=== PATIENT | male | born 1950 | race Caucasian/White ===

== ENCOUNTER 2020-08-05 13:05 | Inpatient (IN) | payer OTHER ==
[~2020-08-05] VITALS: Ht 162.6 cm; Wt 68.5 kg
[~2020-08-05 13:05] MED LIST: ASCO500 PO; ATOR10; ATOR10 PO; Aspir 8181 MG PO; CENTRUM SILVER1 EAC2 PO; CLOP75 PO; DOCU100 PO; FISH OIL 1,0001 EAC1 PO; FISH1000 PO; FOLI400 PO; MULVITMINF; OLME20 PO; OMEP10ER; PENT400ER; ROSU10TA; SILD50TA PO; VALS80 PO; Vitamin B-121000 MCG PO; [UNRECOGNIZED DRUG - REMARK]; [UNRECOGNIZED DRUG - REMARK]
[2020-08-05 13:37] LABS: Hematocrit 18.8 % (37.0-53.0); Mean Corpuscular HGB 37.7 pg (26.0-34.0); Mean Corpuscular HGB Conc 29.3 g/dL (31.5-36.5); Mean Corpuscular Volume 129 fL (80-100); NRBC ABSOLUTE 0.65 K/mm3 (0.00-0.02); NRBC Auto 2.6 /100 WBC (0.0-0.2); RDW Coefficient Variation 19.9 % (11.7-14.2); RDW Standard Deviation 91.1 fL (35.1-46.3); Red Blood Cell Count 1.46 M/mm3 (4.30-5.90); White Blood Cell Count 25.42 K/mm3 (4.00-11.30)
[2020-08-05 13:42] LABS: Mean Platelet Volume 14.4 fL (9.1-12.4)
[2020-08-05 13:44] LABS: Hemoglobin 5.5 g/dL (13.5-17.5)
[2020-08-05 13:45] LABS: Platelet Count 41 K/mm3 (150-400)
[2020-08-05 13:58] LABS: Alanine Aminotransfer (ALT/SGP 16 U/L (12-78); Albumin, Blood 3.4 g/dL (3.4-5.0); Albumin/Globulin Ratio 1.2 (0.8-1.8); Alk Phos 119 U/L (50-136); Anion Gap 8 mmol/L (6-16); Aspartate Aminotrans (AST/SGOT 11 U/L (12-37); Bilirubin, Total 0.9 mg/dL (0.1-1.0); Blood Urea Nitrogen 14 mg/dL (8-24); CO2, Blood 23 mmol/L (21-32); Calcium, Blood 8.6 mg/dL (8.5-10.1); Chloride, Blood 107 mmol/L (98-108); Creatinine, Blood 0.52 mg/dL (0.60-1.20); Globulin, Blood 2.8 g/dL (2.2-4.0); Glomerular Filtration Rate >60 (60-); Glucose, Blood 96 mg/dL (70-99); Potassium, Blood 4.1 mmol/L (3.5-5.5); Sodium, Blood 138 mmol/L (136-145); Total Protein, Blood 6.2 g/dL (6.4-8.2); Troponin I 0.083 ng/mL (0.000-0.040)
[2020-08-05 14:17] LABS: BAND PERCENT MAN 3 % (0-8); BASOPHILS PERCENT MAN 0 % (0-2); BLASTS PERCENT MAN 4 % (0-0); EOSINOPHILS PERCENT MAN 0 % (0-6); LYMPHOCYTES % ATYPICAL MANUAL 8 % (0-0); LYMPHOCYTES ABSOLUTE MAN 13.47 K/mm3 (0.84-5.20); LYMPHOCYTES PERCENT MAN 45 % (21-46); METAMYELOCYTE ABSOLUTE MAN 0.25 K/mm3 (0.00-0.00); METAMYELOCYTE PERCENT MAN 1 % (0-0); MONOCYTES ABSOLUTE MAN 5.08 K/mm3 (0.16-1.47); MONOCYTES PERCENT MAN 20 % (4-13); MYELOCYTE ABSOLUTE MAN 0.25 K/mm3 (0.00-0.00); MYELOCYTE PERCENT MAN 1 % (0-0); NEUTROPHILS ABSOLUTE MAN 5.33 K/mm3 (1.96-9.15); SEG NEUTROPHILS PERCENT MAN 18 % (41-73); TOTAL CELLS COUNTED 100
[2020-08-05] MEDS ORDERED: Hydroxyurea500 MG PO ×2 (14:17)
[2020-08-05] MEDS ORDERED: VALS80 PO ×2 (14:23)
[2020-08-05] MEDS ORDERED: FISH OIL-VIT D1 EACH PO ×2 (14:24)
[2020-08-05] MEDS ORDERED: ATOR40TA PO ×2 (14:24)
[2020-08-05] MEDS ORDERED: C COMPLEX1000 M1 PO ×2 (16:56)
--- NOTE | 2020-08-05 18:14 | NUR ---
SHIFT SUMMARY PATIENT TO THE FLOOR LATE THIS AFTERNOON. PATIENT ALERT, ORIENTED, AND INDEPENDENT IN THE ROOM UPON ARRIVAL. PATIENT TRANSFERED TO THE BED INDEPENDENTLY. PATIENT UP 1X TO THE BATHROOM. PATIENT FINISHED 1ST UNIT OF PRBCs PRIOR TO ARRIVING TO THE FLOOR. SECOND UNIT OF PRBCs INFUSING. PATIENT CURRENTLY SITTING UP IN BED EATING DINNER.
[2020-08-05 21:37] LABS: Hemoglobin 7.5 g/dL (13.5-17.5)
[2020-08-06 05:01] LABS: Hemoglobin 6.9 g/dL (13.5-17.5); NRBC ABSOLUTE 0.41 K/mm3 (0.00-0.02); NRBC Auto 2.8 /100 WBC (0.0-0.2)
[2020-08-06 05:03] LABS: Hematocrit 21.9 % (37.0-53.0); Mean Corpuscular HGB 35.9 pg (26.0-34.0); Mean Corpuscular HGB Conc 31.5 g/dL (31.5-36.5); Mean Corpuscular Volume 114 fL (80-100); Red Blood Cell Count 1.92 M/mm3 (4.30-5.90)
[2020-08-06 05:04] LABS: Platelet Count 33 K/mm3 (150-400)
[2020-08-06 05:22] LABS: BAND PERCENT MAN 2 % (0-8); BASOPHILS ABSOLUTE MAN 0.29 K/mm3 (0.00-0.23); BASOPHILS PERCENT MAN 2 % (0-2); BLASTS PERCENT MAN 3 % (0-0); EOSINOPHILS ABSOLUTE MAN 0.14 K/mm3 (0.00-0.68); EOSINOPHILS PERCENT MAN 1 % (0-6); LYMPHOCYTES % ATYPICAL MANUAL 1 % (0-0); LYMPHOCYTES ABSOLUTE MAN 4.38 K/mm3 (0.84-5.20); LYMPHOCYTES PERCENT MAN 29 % (21-46); METAMYELOCYTE ABSOLUTE MAN 0.29 K/mm3 (0.00-0.00); METAMYELOCYTE PERCENT MAN 2 % (0-0); MONOCYTES ABSOLUTE MAN 5.69 K/mm3 (0.16-1.47); MONOCYTES PERCENT MAN 39 % (4-13); MYELOCYTE ABSOLUTE MAN 0.58 K/mm3 (0.00-0.00); MYELOCYTE PERCENT MAN 4 % (0-0); NEUTROPHILS ABSOLUTE MAN 2.77 K/mm3 (1.96-9.15); SEG NEUTROPHILS PERCENT MAN 17 % (41-73); TOTAL CELLS COUNTED 100
[2020-08-06 05:32] LABS: Anion Gap 5 mmol/L (6-16); Blood Urea Nitrogen 10 mg/dL (8-24); Bun/Creatinine Ratio 18.5 (12.0-20.0); CO2, Blood 24 mmol/L (21-32); Calcium, Blood 8.1 mg/dL (8.5-10.1); Chloride, Blood 112 mmol/L (98-108); Creatinine, Blood 0.54 mg/dL (0.60-1.20); Glomerular Filtration Rate >60 (60-); Glucose, Blood 96 mg/dL (70-99); Potassium, Blood 3.8 mmol/L (3.5-5.5); Sodium, Blood 141 mmol/L (136-145)
--- NOTE | 2020-08-06 06:45 | NUR ---
SHIFT SUMMARY PATIENT ALERT AND ORIENTED. HAD NO COMPLAINTS OF PAIN OR SHORTNESS OF BREATH. NO ACUTE ISSUES NOTED OVERNIGHT. IV PATENT AND FLUSHED. BED IN LOWEST POSITION WITH WHEELS LOCKED. CALL LIGHT WITHIN REACH. REPORT GIVEN TO ONCOMING RN.
--- NOTE | 2020-08-06 07:59 | NUR ---
AWARE OF LABS AND WILL ORDER BLOOD TRANSFUSION
--- NOTE | 2020-08-06 12:32 | NUR ---
VERIFIED HYDROXYUREA WITH [facility]. PATIENT TAKES 1000MG DAILY. PER DR.HACK MEJIA TO CHANGE AND GIVE 500MG MORE.
[2020-08-06 14:03] LABS: Hematocrit 25.3 % (37.0-53.0); Hemoglobin 8.1 g/dL (13.5-17.5)
--- NOTE | 2020-08-06 17:45 | NUR ---
ALERT. ORIENTED. ON 3 LPM WITH BASELINE NO OXYGEN. HOME 0XYGEN EVAL DONE AND DOES NEED OXYGEN AT HOME. [facility] NOT AVAILABLE TO DO HOME OXYGEN OVER THE WEEKEND. PATIENT DOES NOT WISH TO PAY FOR OTHER COMPANY TO SET HIM UP WITH OXYGEN. NO OTHER C/O. WCTM
--- NOTE | 2020-08-07 06:37 | NUR ---
SHIFT SUMMARY PATIENT ALERT AND ORIENTED. HAD NO COMPLAINTS OF PAIN OR SHORTNESS OF BREATH. PATIENT REMAINS ON 3 LITERS OF OXYGEN VIA NASAL CANULA. NO ACUTE ISSUES NOTED. IV PATENT AND FLUSHED. BED IN LOWEST POSITION WITH WHEELS LOCKED. CALL LIGHT WITHIN REACH. REPORT GIVEN TO ONCOMING RN.
[2020-08-07 07:51] LABS: Hematocrit 26.6 % (37.0-53.0); Hemoglobin 8.2 g/dL (13.5-17.5)
[2020-08-07] MEDS ORDERED: TIOT18 INH ×2 (11:08)
--- NOTE | 2020-08-07 12:17 | NUR ---
REVIEW D'C WITH PATIENT AND S.O. AWARE HAS ONE MED AT [facility] [employer] [facility]. REVIEW WHY TAKE IT. AWARE NEEDS TO MAKE APPT WITH VYadielA. PCP AND TO KEEP APPT WITH .ALBA SHOWED PATIENT HOW TO USE OXYGEN. PATIENT/S.O. AWARE THEY NEED TO CALL [facility] WHEN THEY GET HOME TO SET UP FURTHER EQUIPMENT. [facility] CARD ON OXYGEN CASE. ANSWER ALL QUESTIONS. IV D'C W/NO SWELLING OR BRUISING TO AREA. PATIENT VERBALIZES UNDERSTANDING OF D'C. IN W/C W/RN TO POV.
== END 2020-08-07 12:10 | disposition home or self-care (01) | DRG 840 ==
LOC: ER 13:05 → ERHOLD 15:23 → MEDS 16:35
PROVIDERS: Emergency Medicine; Internal Medicine; ADMIT Internal Medicine
PROC: 30233N1 Transfusion of Nonautologous Red Blood Cells into Peripheral Vein, Percutaneous Approach (ICD-10-PCS; principal; 2020-08-05)
DX: C92.10 Chronic myeloid leukemia, BCR/ABL-positive, not having achieved remission (principal); J96.01 Acute respiratory failure with hypoxia; I10 Essential (primary) hypertension; E78.5 Hyperlipidemia, unspecified; F17.210 Nicotine dependence, cigarettes, uncomplicated; J44.9 Chronic obstructive pulmonary disease, unspecified; D63.0 Anemia in neoplastic disease; Z90.89 Acquired absence of other organs; Z98.52 Vasectomy status; Z86.010 Personal history of colon polyps; Z88.5 Allergy status to narcotic agent; Z88.8 Allergy status to other drugs, medicaments and biological substances; Z79.02 Long term (current) use of antithrombotics/antiplatelets; Z79.82 Long term (current) use of aspirin; Z79.899 Other long term (current) drug therapy
CPT/HCPCS: 36415; 36430; 71045; 80048; 80053; 83880; 84145; 84484; 85014; 85018; 85025; 86850; 86900; 86901; 86923; 93005; 93010; 94760; 94761; 99285-25; A9270; J7030; J7050; P9016

== ENCOUNTER 2020-08-18 01:19 | Day surgery (SDC) | payer OTHER, BC ==
[2020-08-16 12:30] LABS: Hematocrit 24.2 % (37.0-53.0); Hemoglobin 7.2 g/dL (13.5-17.5); Mean Corpuscular HGB 35.8 pg (26.0-34.0); Mean Corpuscular HGB Conc 29.8 g/dL (31.5-36.5); Mean Corpuscular Volume 120 fL (80-100); NRBC ABSOLUTE 0.73 K/mm3 (0.00-0.02); NRBC Auto 1.6 /100 WBC (0.0-0.2); RDW Coefficient Variation 22.3 % (11.7-14.2); RDW Standard Deviation 97.4 fL (35.1-46.3); Red Blood Cell Count 2.01 M/mm3 (4.30-5.90); White Blood Cell Count 46.74 K/mm3 (4.00-11.30)
[2020-08-16 12:52] LABS: Platelet Count 40 K/mm3 (150-400)
[2020-08-16 13:12] LABS: BAND PERCENT MAN 4 % (0-8); BASOPHILS ABSOLUTE MAN 0.93 K/mm3 (0.00-0.23); BASOPHILS PERCENT MAN 2 % (0-2); EOSINOPHILS PERCENT MAN 0 % (0-6); LYMPHOCYTES ABSOLUTE MAN 3.73 K/mm3 (0.84-5.20); LYMPHOCYTES PERCENT MAN 8 % (21-46); METAMYELOCYTE ABSOLUTE MAN 2.33 K/mm3 (0.00-0.00); METAMYELOCYTE PERCENT MAN 5 % (0-0); MONOCYTES ABSOLUTE MAN 23.83 K/mm3 (0.16-1.47); MONOCYTES PERCENT MAN 51 % (4-13); NEUTROPHILS ABSOLUTE MAN 10.75 K/mm3 (1.96-9.15); SEG NEUTROPHILS PERCENT MAN 19 % (41-73); TOTAL CELLS COUNTED 100
[2020-08-16 13:13] LABS: MYELOCYTE ABSOLUTE MAN 2.33 K/mm3 (0.00-0.00); OTHER CELL PERCENT MAN 5 % (0-0); PROMYELOCYTE ABSOLUTE MAN 0.46 K/mm3 (0.00-0.00); PROMYELOCYTE PERCENT MAN 1 % (0-0)
[2020-08-16 13:15] LABS: MYELOCYTE PERCENT MAN 5 % (0-0)
[~2020-08-18 01:19] MED LIST changes: +ATOR40TA PO; +C COMPLEX1000 M1 PO; +FISH OIL-VIT D1 EACH PO; +Hydroxyurea500 MG PO; +TIOT18 INH
[2020-08-18] MEDS ORDERED: OLME20 PO (14:50)
[2020-08-18] MEDS ORDERED: MYLANTA GAS MIN42 MG PO (14:50)
[2020-08-18] MEDS ORDERED: MIRALAX17 GM PO (14:50)
== END 2020-08-18 15:46 | disposition home or self-care (01) ==
LOC: ATC 01:19 → EDSTATUS 13:30 → ATC 15:46
PROVIDERS: Internal Medicine Hematology & Oncology
DX: C92.02 Acute myeloblastic leukemia, in relapse (principal); F17.210 Nicotine dependence, cigarettes, uncomplicated; Z88.6 Allergy status to analgesic agent; Z88.5 Allergy status to narcotic agent; Z79.899 Other long term (current) drug therapy
CPT/HCPCS: 36415; 36430; 85025; 86850; 86900; 86901; 86923; J1642; J7050; P9016

== ENCOUNTER 2020-08-24 10:41 | Day surgery (SDC) | payer OTHER, BC ==
[2020-08-23 12:34] LABS: Hematocrit 22.8 % (37.0-53.0); Hemoglobin 6.7 g/dL (13.5-17.5); Mean Corpuscular HGB 35.6 pg (26.0-34.0); Mean Corpuscular HGB Conc 29.4 g/dL (31.5-36.5); Mean Corpuscular Volume 121 fL (80-100); NRBC ABSOLUTE 1.54 K/mm3 (0.00-0.02); NRBC Auto 2.7 /100 WBC (0.0-0.2); RDW Coefficient Variation 22.7 % (11.7-14.2); RDW Standard Deviation 98.3 fL (35.1-46.3); Red Blood Cell Count 1.88 M/mm3 (4.30-5.90)
[2020-08-23 13:02] LABS: White Blood Cell Count 57.92 K/mm3 (4.00-11.30)
[2020-08-23 13:03] LABS: Platelet Count 41 K/mm3 (150-400)
[2020-08-23 13:47] LABS: BAND PERCENT MAN 4 % (0-8); BASOPHILS ABSOLUTE MAN 0.57 K/mm3 (0.00-0.23); BASOPHILS PERCENT MAN 1 % (0-2); BLASTS PERCENT MAN 4 % (0-0); EOSINOPHILS ABSOLUTE MAN 0.57 K/mm3 (0.00-0.68); EOSINOPHILS PERCENT MAN 1 % (0-6); LYMPHOCYTES % ATYPICAL MANUAL 3 % (0-0); LYMPHOCYTES ABSOLUTE MAN 6.37 K/mm3 (0.84-5.20); LYMPHOCYTES PERCENT MAN 8 % (21-46); METAMYELOCYTE ABSOLUTE MAN 5.79 K/mm3 (0.00-0.00); METAMYELOCYTE PERCENT MAN 10 % (0-0); MONOCYTES PERCENT MAN 38 % (4-13); MYELOCYTE ABSOLUTE MAN 8.68 K/mm3 (0.00-0.00); MYELOCYTE PERCENT MAN 15 % (0-0); NEUTROPHILS ABSOLUTE MAN 8.68 K/mm3 (1.96-9.15); OTHER CELL PERCENT MAN 4 % (0-0); PROMYELOCYTE ABSOLUTE MAN 0.57 K/mm3 (0.00-0.00); PROMYELOCYTE PERCENT MAN 1 % (0-0); SEG NEUTROPHILS PERCENT MAN 11 % (41-73); TOTAL CELLS COUNTED 100
[~2020-08-24 10:41] MED LIST changes: +MIRALAX17 GM PO; +MYLANTA GAS MIN42 MG PO
== END 2020-08-24 17:21 | disposition home or self-care (01) ==
LOC: ATC 10:41
PROVIDERS: Internal Medicine Hematology & Oncology
DX: C92.02 Acute myeloblastic leukemia, in relapse (principal); C93.10 Chronic myelomonocytic leukemia not having achieved remission; D64.81 Anemia due to antineoplastic chemotherapy; F17.210 Nicotine dependence, cigarettes, uncomplicated; Z88.5 Allergy status to narcotic agent
CPT/HCPCS: 36415; 36430; 85025; 86850; 86900; 86901; 86923; J1642; J7050; P9016

== ENCOUNTER 2020-08-31 02:39 | Day surgery (SDC) | payer OTHER ==
[2020-08-30 10:21] LABS: Hematocrit 23.1 % (37.0-53.0); Hemoglobin 6.8 g/dL (13.5-17.5); Mean Corpuscular HGB 35.8 pg (26.0-34.0); Mean Corpuscular HGB Conc 29.4 g/dL (31.5-36.5); Mean Corpuscular Volume 122 fL (80-100); NRBC ABSOLUTE 3.65 K/mm3 (0.00-0.02); NRBC Auto 4.7 /100 WBC (0.0-0.2); RDW Coefficient Variation 24.9 % (11.7-14.2); RDW Standard Deviation 105.6 fL (35.1-46.3)
[2020-08-30 10:32] LABS: Platelet Count 48 K/mm3 (150-400)
[2020-08-30 10:33] LABS: White Blood Cell Count 77.78 K/mm3 (4.00-11.30)
[2020-08-30 10:48] LABS: BAND PERCENT MAN 2 % (0-8); BASOPHILS ABSOLUTE MAN 0.77 K/mm3 (0.00-0.23); BASOPHILS PERCENT MAN 1 % (0-2); EOSINOPHILS ABSOLUTE MAN 1.55 K/mm3 (0.00-0.68); EOSINOPHILS PERCENT MAN 2 % (0-6); LYMPHOCYTES ABSOLUTE MAN 14.77 K/mm3 (0.84-5.20); LYMPHOCYTES PERCENT MAN 19 % (21-46); MONOCYTES ABSOLUTE MAN 20.22 K/mm3 (0.16-1.47); MONOCYTES PERCENT MAN 26 % (4-13); NEUTROPHILS ABSOLUTE MAN 17.11 K/mm3 (1.96-9.15); SEG NEUTROPHILS PERCENT MAN 20 % (41-73); TOTAL CELLS COUNTED 100
[2020-08-30 10:49] LABS: MYELOCYTE PERCENT MAN 27 % (0-0); OTHER CELL PERCENT MAN 3 % (0-0)
== END 2020-08-31 17:30 | disposition home or self-care (01) ==
LOC: ATC 02:39 → EDSTATUS 15:00 → ATC 15:00
PROVIDERS: Internal Medicine Hematology & Oncology
DX: C92.02 Acute myeloblastic leukemia, in relapse (principal); F17.210 Nicotine dependence, cigarettes, uncomplicated; Z88.5 Allergy status to narcotic agent; Z88.6 Allergy status to analgesic agent; Z79.82 Long term (current) use of aspirin; Z79.899 Other long term (current) drug therapy
CPT/HCPCS: 36415; 36430; 85025; 86850; 86900; 86901; 86923; J1642; J7050; P9016

== ENCOUNTER 2020-09-15 10:03 | Day surgery (SDC) | payer OTHER ==
[~2020-09-15 10:03] MED LIST changes: +SPIRIVA RESPIMAT4 G3 INH; -TIOT18 INH; -Vitamin B-121000 MCG PO
[2020-09-15] MEDS ORDERED: VALS80 PO (11:40)
[2020-09-15] MEDS ORDERED: ALBU90OI INH (13:25)
[2020-09-15] MEDS ORDERED: Nicoderm Cq1 EAC1 TD (13:25)
[2020-09-15] MEDS ORDERED: CYAN500 PO (14:13)
== END 2020-09-15 23:00 | disposition home or self-care (01) ==
LOC: ATC 10:03
DX: C92.02 Acute myeloblastic leukemia, in relapse (principal); F17.210 Nicotine dependence, cigarettes, uncomplicated; Z88.5 Allergy status to narcotic agent; Z88.6 Allergy status to analgesic agent
CPT/HCPCS: 36415; 85025; 86850; 86900; 86901; 86923; J1642; J2704; J3010; J7050

== ENCOUNTER 2020-09-15 10:56 | Inpatient (IN) | payer MEDICARE, OTHER ==
[~2020-09-15] VITALS: Ht 162.6 cm; Wt 72.5 kg
[2020-09-15 11:40] LABS: Hematocrit 18.6 % (37.0-53.0); Mean Corpuscular HGB 35.9 pg (26.0-34.0); Mean Corpuscular HGB Conc 29.6 g/dL (31.5-36.5); Mean Corpuscular Volume 122 fL (80-100); NRBC ABSOLUTE 7.16 K/mm3 (0.00-0.02); NRBC Auto 6.5 /100 WBC (0.0-0.2); RDW Coefficient Variation 26.7 % (11.7-14.2); RDW Standard Deviation 110.6 fL (35.1-46.3); Red Blood Cell Count 1.53 M/mm3 (4.30-5.90)
[2020-09-15] MEDS ORDERED: VALS80 PO (11:40)
[2020-09-15 11:46] LABS: Hemoglobin 5.5 g/dL (13.5-17.5); White Blood Cell Count 110.36 K/mm3 (4.00-11.30)
[2020-09-15 11:47] LABS: Platelet Count 37 K/mm3 (150-400)
[2020-09-15 12:17] LABS: Alanine Aminotransfer (ALT/SGP 20 U/L (12-78); Albumin, Blood 2.8 g/dL (3.4-5.0); Albumin/Globulin Ratio 1.1 (0.8-1.8); Alk Phos 133 U/L (50-136); Anion Gap 7 mmol/L (6-16); Aspartate Aminotrans (AST/SGOT 28 U/L (12-37); Bilirubin, Total 1.1 mg/dL (0.1-1.0); Blood Urea Nitrogen 17 mg/dL (8-24); Bun/Creatinine Ratio 37.2 (12.0-20.0); CO2, Blood 23 mmol/L (21-32); Chloride, Blood 108 mmol/L (98-108); Creatinine, Blood 0.46 mg/dL (0.60-1.20); Globulin, Blood 2.5 g/dL (2.2-4.0); Glomerular Filtration Rate >60 (60-); Glucose, Blood 126 mg/dL (70-99); Potassium, Blood 4.3 mmol/L (3.5-5.5); Sodium, Blood 138 mmol/L (136-145); Total Protein, Blood 5.3 g/dL (6.4-8.2)
[2020-09-15 12:40] LABS: BASOPHILS PERCENT MAN 0 % (0-2); EOSINOPHILS PERCENT MAN 0 % (0-6); LYMPHOCYTES ABSOLUTE MAN 24.27 K/mm3 (0.84-5.20); LYMPHOCYTES PERCENT MAN 22 % (21-46); MONOCYTES ABSOLUTE MAN 27.59 K/mm3 (0.16-1.47); MONOCYTES PERCENT MAN 25 % (4-13); MYELOCYTE ABSOLUTE MAN 27.59 K/mm3 (0.00-0.00); MYELOCYTE PERCENT MAN 25 % (0-0); SEG NEUTROPHILS PERCENT MAN 28 % (41-73); TOTAL CELLS COUNTED 100
[2020-09-15] MEDS ORDERED: Nicoderm Cq1 EAC1 TD (13:25)
[2020-09-15] MEDS ORDERED: ALBU90OI INH (13:25)
--- NOTE | 2020-09-15 13:27 | NUR ---
Spoke with Devops Engineer Cheng, Dr Cano, and disccussed case. 70 year old male to the ED with perforated bowel. Pt has CML receiving weekly blood transfusions. Pt is unsure if he wants to focus on comofort or have surgery. Pt resting on gurny upon arrival. Dr Mcbride in discussing surgery including risk factors and potential complications of procedure. This RN remained behind and answered questions. Engaged in therapeutic discussion regarding goals, values and quality of life. Pt reports 9/10 pain in his abdomen. Pt reports quality of life has diminished and felt only one time that blood transfusion was benefical in assisting with his energy level. Continued therapeutic listening. Spouse Rebeca is at bedside. Rebeca reports Pt has been experiecing significant weakeness and can only ambulate short distances before needing to recover. Continued therapeutic listening with Pt and spouse and offered suggestions to determine goals and valuses. Pt still reports being unsure. After a lengthy conversation Pt decides he will have the surgery and determine at a later time if he wants to continue with blood transfusions for his CML or to consider hospice. Pt and spouse express appreciation of visit and reports no other concerns at this time. Spoke with Dr Cano, and Hospitalist Hal. Discussed Pt's decision and ED staff will contact Dr Mcbride. Palliative Care will remain available for supportive visits.
[2020-09-15] MEDS ORDERED: CYAN500 PO (14:13)
[2020-09-15 15:06] LABS: SARS-Cov-2 (COVID-19) PCR, MMC NEGATIVE (NEGATIVE)
[2020-09-15 16:21] LABS: Hematocrit 22.9 % (37.0-53.0); Hemoglobin 6.7 g/dL (13.5-17.5); Mean Corpuscular HGB 35.1 pg (26.0-34.0); Mean Corpuscular HGB Conc 29.3 g/dL (31.5-36.5); Mean Corpuscular Volume 120 fL (80-100); Mean Platelet Volume 12.6 fL (9.1-12.4); NRBC ABSOLUTE 11.09 K/mm3 (0.00-0.02); NRBC Auto 12.8 /100 WBC (0.0-0.2); Platelet Count 67 K/mm3 (150-400); RDW Standard Deviation 106.6 fL (35.1-46.3); Red Blood Cell Count 1.91 M/mm3 (4.30-5.90)
[2020-09-15 16:29] LABS: Base Excess Venous -17.5 mmol/L; Bicarbonate Venous 11.6 mmol/L (24.0-30.0); PCO2 Venous 39.7 mmHg (38-42); PO2 Venous 44.2 mmHg (38-42)
[2020-09-15 16:55] LABS: BAND PERCENT MAN 9 % (0-8); BASOPHILS ABSOLUTE MAN 2.59 K/mm3 (0.00-0.23); BASOPHILS PERCENT MAN 3 % (0-2); BLASTS PERCENT MAN 8 % (0-0); EOSINOPHILS ABSOLUTE MAN 1.73 K/mm3 (0.00-0.68); EOSINOPHILS PERCENT MAN 2 % (0-6); LYMPHOCYTES % ATYPICAL MANUAL 6 % (0-0); LYMPHOCYTES ABSOLUTE MAN 21.62 K/mm3 (0.84-5.20); LYMPHOCYTES PERCENT MAN 19 % (21-46); METAMYELOCYTE ABSOLUTE MAN 4.32 K/mm3 (0.00-0.00); METAMYELOCYTE PERCENT MAN 5 % (0-0); MONOCYTES ABSOLUTE MAN 19.89 K/mm3 (0.16-1.47); MONOCYTES PERCENT MAN 23 % (4-13); MYELOCYTE ABSOLUTE MAN 8.65 K/mm3 (0.00-0.00); MYELOCYTE PERCENT MAN 10 % (0-0); NEUTROPHILS ABSOLUTE MAN 20.76 K/mm3 (1.96-9.15); SEG NEUTROPHILS PERCENT MAN 15 % (41-73); TOTAL CELLS COUNTED 100
--- NOTE | 2020-09-15 18:11 | NUR ---
09/15/20 181 Addis Lowery PT ENTERED OR WITH HILARIO CATHETER AND ON SCHEDULED ANTIBIOTICS
[2020-09-15 19:29] LABS: Hematocrit 27.1 % (37.0-53.0); Mean Corpuscular HGB 34.2 pg (26.0-34.0); Mean Corpuscular HGB Conc 29.5 g/dL (31.5-36.5); Mean Corpuscular Volume 116 fL (80-100); NRBC ABSOLUTE 13.98 K/mm3 (0.00-0.02); NRBC Auto 11.4 /100 WBC (0.0-0.2); Platelet Count 73 K/mm3 (150-400); RDW Coefficient Variation 27.4 % (11.7-14.2); RDW Standard Deviation 101.3 fL (35.1-46.3); Red Blood Cell Count 2.34 M/mm3 (4.30-5.90)
--- NOTE | 2020-09-15 19:30 | NUR ---
ASSUMED CARE PATIENT LYING IN BED INTUBATED AND SEDATED W/ PROPOFOL; APPEARS RESTLESS WITH GROSS MOVEMENTS OF UPPER EXTREMITIES. RT IN ROOM ASSISTING WITH VENTILATOR SET UP WITH SETTINGS AT AC 18/450/10/100%. FOLLOWING SET UP, RADIOLOGY CONFIRMED APPROPRIATE PLACEMENT OF ETT/NG TUBE. PATIENT HAS BRUCE TO MIDLINE ABD AND RACHEL DRAIN TO RLQ DRAINING SANGUINOUS FLUID. HILARIO CATHETER IN PLACE DRAINING ALEXA COLORED URINE TO GRAVITY. PATIENT HAS RT SUBCLAVIAN MEDIPORT ACCESSED AND 18G IV IN RT FOREARM. LR BOLUS, VASOPRESSIN, ERIS-SYNEPHRINE, AND LEVOPHED INFUSING.
[2020-09-15 19:33] LABS: White Blood Cell Count 122.77 K/mm3 (4.00-11.30)
[2020-09-15 19:38] LABS: PCO2 Arterial 44.4 mmHg (35-45); pH Blood Arterial 7.19 (7.35-7.45)
[2020-09-15 19:46] LABS: Alanine Aminotransfer (ALT/SGP 178 U/L (12-78); Albumin, Blood 2.5 g/dL (3.4-5.0); Alk Phos 139 U/L (50-136); Anion Gap 11 mmol/L (6-16); Aspartate Aminotrans (AST/SGOT 196 U/L (12-37); Blood Urea Nitrogen 21 mg/dL (8-24); Bun/Creatinine Ratio 32.8 (12.0-20.0); CO2, Blood 17 mmol/L (21-32); Calcium, Blood 7.8 mg/dL (8.5-10.1); Chloride, Blood 113 mmol/L (98-108); Creatinine, Blood 0.64 mg/dL (0.60-1.20); Globulin, Blood 2.4 g/dL (2.2-4.0); Glomerular Filtration Rate >60 (60-); Glucose, Blood 76 mg/dL (70-99); Potassium, Blood 4.4 mmol/L (3.5-5.5); Sodium, Blood 141 mmol/L (136-145); Total Protein, Blood 4.9 g/dL (6.4-8.2); Troponin I 0.034 ng/mL (0.000-0.040)
[2020-09-15 20:04] LABS: BAND PERCENT MAN 7 % (0-8); BASOPHILS PERCENT MAN 0 % (0-2); BLASTS PERCENT MAN 5 % (0-0); EOSINOPHILS ABSOLUTE MAN 1.22 K/mm3 (0.00-0.68); EOSINOPHILS PERCENT MAN 1 % (0-6); LYMPHOCYTES ABSOLUTE MAN 33.14 K/mm3 (0.84-5.20); LYMPHOCYTES PERCENT MAN 27 % (21-46); METAMYELOCYTE ABSOLUTE MAN 3.68 K/mm3 (0.00-0.00); METAMYELOCYTE PERCENT MAN 3 % (0-0); MONOCYTES ABSOLUTE MAN 29.46 K/mm3 (0.16-1.47); MONOCYTES PERCENT MAN 24 % (4-13); MYELOCYTE ABSOLUTE MAN 20.87 K/mm3 (0.00-0.00); MYELOCYTE PERCENT MAN 17 % (0-0); PLASMA CELL ABSOLUTE MAN 1.22 K/mm3 (0.00-0.00); PLASMA CELLS PERCENT MAN 1 % (0-0); SEG NEUTROPHILS PERCENT MAN 15 % (41-73); TOTAL CELLS COUNTED 100
[2020-09-16 00:59] LABS: Hematocrit 26.6 % (37.0-53.0); Hemoglobin 8.4 g/dL (13.5-17.5)
[2020-09-16 01:49] LABS: PCO2 Arterial 35.2 mmHg (35-45); PO2 Arterial 66.3 mmHg (80-100); pH Blood Arterial 7.42 (7.35-7.45)
[2020-09-16 03:56] LABS: Hematocrit 26.8 % (37.0-53.0); Hemoglobin 8.5 g/dL (13.5-17.5); Mean Corpuscular HGB 32.9 pg (26.0-34.0); Mean Corpuscular HGB Conc 31.7 g/dL (31.5-36.5); NRBC ABSOLUTE 16.52 K/mm3 (0.00-0.02); NRBC Auto 16.8 /100 WBC (0.0-0.2); Platelet Count 64 K/mm3 (150-400); RDW Coefficient Variation 27.9 % (11.7-14.2); RDW Standard Deviation 90.4 fL (35.1-46.3); Red Blood Cell Count 2.58 M/mm3 (4.30-5.90)
[2020-09-16 04:02] LABS: Mean Corpuscular Volume 104 fL (80-100)
[2020-09-16 04:03] LABS: White Blood Cell Count 98.22 K/mm3 (4.00-11.30)
[2020-09-16 04:11] LABS: Alanine Aminotransfer (ALT/SGP 807 U/L (12-78); Albumin, Blood 2.1 g/dL (3.4-5.0); Alk Phos 125 U/L (50-136); Anion Gap 9 mmol/L (6-16); Aspartate Aminotrans (AST/SGOT 767 U/L (12-37); Bilirubin, Total 0.9 mg/dL (0.1-1.0); Blood Urea Nitrogen 24 mg/dL (8-24); Bun/Creatinine Ratio 27.4 (12.0-20.0); CO2, Blood 24 mmol/L (21-32); Calcium, Blood 6.8 mg/dL (8.5-10.1); Chloride, Blood 109 mmol/L (98-108); Creatinine, Blood 0.88 mg/dL (0.60-1.20); Globulin, Blood 2.2 g/dL (2.2-4.0); Glomerular Filtration Rate >60 (60-); Glucose, Blood 157 mg/dL (70-99); Sodium, Blood 142 mmol/L (136-145); Total Protein, Blood 4.3 g/dL (6.4-8.2)
[2020-09-16 04:14] LABS: BAND PERCENT MAN 11 % (0-8); BASOPHILS PERCENT MAN 0 % (0-2); BLASTS PERCENT MAN 8 % (0-0); EOSINOPHILS PERCENT MAN 0 % (0-6); LYMPHOCYTES ABSOLUTE MAN 18.66 K/mm3 (0.84-5.20); LYMPHOCYTES PERCENT MAN 19 % (21-46); METAMYELOCYTE ABSOLUTE MAN 7.85 K/mm3 (0.00-0.00); METAMYELOCYTE PERCENT MAN 8 % (0-0); MONOCYTES ABSOLUTE MAN 12.76 K/mm3 (0.16-1.47); MONOCYTES PERCENT MAN 13 % (4-13); MYELOCYTE ABSOLUTE MAN 12.76 K/mm3 (0.00-0.00); MYELOCYTE PERCENT MAN 13 % (0-0); NEUTROPHILS ABSOLUTE MAN 37.32 K/mm3 (1.96-9.15); PROMYELOCYTE ABSOLUTE MAN 0.98 K/mm3 (0.00-0.00); PROMYELOCYTE PERCENT MAN 1 % (0-0); SEG NEUTROPHILS PERCENT MAN 27 % (41-73); TOTAL CELLS COUNTED 100
--- NOTE | 2020-09-16 06:14 | NUR ---
SHIFT SUMMARY PATIENT REMAINED INTUBATED AND SEDATED THROUGHOUT SHIFT. PROPOFOL STAYED AT 40MCG/KG/MIN, EXCEPT TO ASSESS NEUROLOGICAL STATUS. W/O PROPOFOL PATIENT WAS ABLE TO OPEN EYES AND HAD A WEAK MANAGER FOOD STRENGTH OF BOTH HANDS BILATERALLY. PATIENT WOULD BECOME TACHYPNEIC WITH RESPIRATORY RATE IN 20'S- LOW 30'S, DIAPHORETIC, AND RESTLESS WITH SPO2 > 95% AND MAP >60. FENTANYL 50MCG IV GIVEN Q1P X 2 DOSES WITH GOOD RESPONSE FROM PATIENT OF RELAXED POSTURE, RESPIRATIONS IN THE HIGH TEENS-LOW 20'S, AND RESOLVE OF DIAPHORESIS. AT THE BEGINNING OF SHIFT, PATIENT'S HGB RETURNED AT 8.0 WITH ORDERS TO TRANSFUSE. 1 UNIT PRBC ADMINISTERED WITH HGB INCREASE TO 8.4, THEN 8.5. RACHEL DRAIN HAD MODERATE AMOUNT OF OUTPUT WITH CHANGE FROM SANGUIONOUS TO SEROSANGUINOUS; NO CHANGE IN INCISION DRAINAGE ON MIDLINE ABD. PRECEDEX STARTED TOWARDS THE END OF SHIFT TO HELP WITH RESTLESSNESS AND ANXIETY WHICH CAUSED HYPOTENSION. PRECEDEX NOW ON SB WITH FENTANYL 100MCG GIVEN. WILL CONTINUE TO MONITOR UNTIL REPORT GIVEN TO ONCOMING RN.
--- NOTE | 2020-09-16 07:15 | NUR ---
Assumed care of pt at 0700. Bedside report received from Dolores DAVIS. Pt sedated with 40 mcg/kg/min. Precedex on standby, Pt has furrowed brow, looks uncomfortable. Diaphoretic. Pt on ventilator. Settings ACVC 18/450/10/65%. SpO2 90% or greater. Receiving levophed at 20 mcg/min, vasopressin 0.04 units/min, neosynephrine at 100 mcg/min. BP stable. SR per monitor. Pt has RACHEL to RLQ with serosanguinous drainage. NG tube with green drainage. Hutchins catheter with clear yellow urine. Midline incision dressed with BRUCE dressing. Small amount of red drainage on dressing within lines of demarcation- placed by night court magistrate.
--- NOTE | 2020-09-16 14:00 | NUR ---
Spouse in to see pt. Update provided. Pt's children and grandchildren visiting from outside window.
--- NOTE | 2020-09-16 18:29 | NUR ---
SUMMARY At this time, pt is receiving propofol at 40 mcg/kg/min and precedex at 0.4 mcg/kg/hr for ventilator tolerance. Ventilator settings ACVC 18/450/10/50%. SpO2 90% or greater. Pt is receiving levophed at 16 mcg/min, vasopressin at 0.04 units/min, and neosynephrine is off. BP stable. SR per monitor. Urine output slowing, Dr Sequeira aware. Urine drainage bag changed to urometer for more accurate I&O measurement. Pt having a lot of cloudy serous drainage from RACHEL, requiring emptying about every 2 hours. Drainage on BRUCE dressing unchanged from start of shift. NG tube to LIS. Large amount of output, recorded in I&O. Will continue to closely monitor until care handoff and bedside report with oncoming RN.
--- NOTE | 2020-09-16 20:00 | NUR ---
ASSUMPTION OF CARE PT REMAINS INTUBATED AT THIS TIME. VENT SETTINGS 18/450/10/50%. PT WAKENS TO VERBAL STIMULI. PURPOSEFUL MOVEMENT WITH UPPER EXTREMITIES. RECEIVING VASOPRESSIN 0.4UNITS/MIN, LEVOPHED 25MCG/MIN, PROPOFOL 40MCG/KG/MIN, PRECEDEX 0.4MCG/KG/HR, AND LR AT 125MLS/HR. PT APPEARS VERY PALE AND DIAPHORETIC/CLAMMY. GOWN REMOVED AND FAN PLACED NEAR PT. BRUCE DRESSING IN PLACE WITH DRAINAGE OUTLINED FROM PREVIOUS EVENT ORGANIZER. RACHEL IN PLACE WITH YELLOW/PURULENT DRAINAGE. HILARIO DRAINING SMALL AMOUNT OF ALEXA URINE. R GROIN CENTRAL LINE IN PLACE. INSERTION SITE SHOWS SIGNS OF PREVIOUS LEAKING. DRESSING WILL BE CHANGED.
[2020-09-17 04:32] LABS: Hematocrit 23.4 % (37.0-53.0); Hemoglobin 7.3 g/dL (13.5-17.5); Mean Corpuscular HGB 33.3 pg (26.0-34.0); Mean Corpuscular HGB Conc 31.2 g/dL (31.5-36.5); Mean Corpuscular Volume 107 fL (80-100); RDW Coefficient Variation 27.9 % (11.7-14.2); RDW Standard Deviation 97.2 fL (35.1-46.3); Red Blood Cell Count 2.19 M/mm3 (4.30-5.90)
[2020-09-17 04:35] LABS: Platelet Count 45 K/mm3 (150-400); White Blood Cell Count 98.27 K/mm3 (4.00-11.30)
[2020-09-17 04:48] LABS: Source, Urine Catheter
[2020-09-17 04:54] LABS: Bilirubin, Urine Neg (Neg); Blood, Urine 5+ (Neg); Glucose Qualitative, Urine Neg (Neg); Ketones, Urine Neg (Neg); Leukocyte Esterase, Urine Neg (Neg); Nitrite, Urine Neg (Neg); Protein, Urine 2+ (Neg); Urobilinogen, Urine NORM (Normal)
[2020-09-17 04:58] LABS: Albumin, Blood 2.9 g/dL (3.4-5.0); Anion Gap 5 mmol/L (6-16); Blood Urea Nitrogen 31 mg/dL (8-24); Bun/Creatinine Ratio 34.8 (12.0-20.0); CO2, Blood 26 mmol/L (21-32); Calcium, Blood 6.9 mg/dL (8.5-10.1); Chloride, Blood 110 mmol/L (98-108); Creatinine, Blood 0.89 mg/dL (0.60-1.20); Glomerular Filtration Rate >60 (60-); Glucose, Blood 138 mg/dL (70-99); Phosphorus, Blood 3.1 mg/dL (2.5-4.9); Potassium, Blood 4.2 mmol/L (3.5-5.5); Sodium, Blood 141 mmol/L (136-145)
[2020-09-17 05:05] LABS: Appearance, Urine Hazy (Clear); Color, Urine Yellow (P-Yellow)
[2020-09-17 05:06] LABS: Amorphous Mod (0-Heavy); Bacteria Few /hpf; Red Blood Cells, Urine 0-2 /hpf (0-2); Squamous Epithelial Cells Rare /hpf (Few); Uric Acid Crystals Many /hpf; White Blood Cells, Urine Not Seen /hpf (0-5)
[2020-09-17 05:33] LABS: BAND PERCENT MAN 10 % (0-8); BASOPHILS PERCENT MAN 0 % (0-2); BLASTS PERCENT MAN 11 % (0-0); EOSINOPHILS PERCENT MAN 0 % (0-6); LYMPHOCYTES ABSOLUTE MAN 27.51 K/mm3 (0.84-5.20); LYMPHOCYTES PERCENT MAN 28 % (21-46); METAMYELOCYTE ABSOLUTE MAN 8.84 K/mm3 (0.00-0.00); METAMYELOCYTE PERCENT MAN 9 % (0-0); MONOCYTES ABSOLUTE MAN 4.91 K/mm3 (0.16-1.47); MONOCYTES PERCENT MAN 5 % (4-13); MYELOCYTE ABSOLUTE MAN 13.75 K/mm3 (0.00-0.00); MYELOCYTE PERCENT MAN 14 % (0-0); NEUTROPHILS ABSOLUTE MAN 25.55 K/mm3 (1.96-9.15); PROMYELOCYTE ABSOLUTE MAN 6.87 K/mm3 (0.00-0.00); PROMYELOCYTE PERCENT MAN 7 % (0-0); SEG NEUTROPHILS PERCENT MAN 16 % (41-73); TOTAL CELLS COUNTED 100
--- NOTE | 2020-09-17 06:07 | NUR ---
SHIFT SUMMARY PT REMAINS INTUBATED WITH VENT SETTINGS 18/450/10/50%. PT WAKENS TO VERBAL STIMULI, IS ABLE TO NOD HEAD YES/NO, AND FOLLOW SOME COMMANDS. PT CURRENTLY RECEIVING VASOPRESSIN 0.04UNITS/MIN, LEVOPHED 12MCG/MIN, PROPOFOL 40MCG/KG/MIN, AND LR 125MLS/HR. PT STILL APPEARS PALE AND DIAPHORETIC. OCCASIONALLY CLAMMY. R ARM EDEMA 3+. SCDS REMOVED DUE TO DIFFICULTY FINDING LEFT LOWER EXTREMITY PULSE AND INCREASING EDEMA. NAHID HOSE APPLIED. RACHEL DRAIN HAS SHIFT OUTPUT OF 370ML. URINARY OUTPUT THROUGHOUT SHIFT IS 900ML. MEDIPORT HAS BEEN DEACCESSED AND HEPARIN LOCKED PER ORDER. WILL REPORT TO ONCOMING RN.
--- NOTE | 2020-09-17 07:15 | NUR ---
Assumed care of pt at 0700. Bedside report received from Tiffany DAVIS. Pt sedated with propofol at 40 mcg/kg/min and precedex at 0.4 mcg/kg/hr, for ventilator tolerance. Settings ACVC 18/450/10/40%. SpO2 90% or greater. Lungs clear t/o. SR per monitor. BP stable. OG tube to LIS with bile drainage. RACHEL with dark baron drainage. BRUCE dressing has drainage within lines of demarction. No new drainage. Hutchins catheter patent and draining clear, yellow urine.
--- NOTE | 2020-09-17 13:43 | NUR ---
Pt is now on fentanyl WRECKING CAR DRIVER for pain control. Pt appears comfortable at this time. Levophed required increase to 14 mcg/min.
--- NOTE | 2020-09-17 14:37 | NUR ---
Pt's spouse at bedside, visiting with patient.
--- NOTE | 2020-09-17 18:35 | NUR ---
SUMMARY Pt transferred to room ICU 13. Pt's spouse aware. Care transferred to Neyda RN at 1800. Pt on 40 mcg/kg/min propofol, 0.4 mcg/kg/hr precedex. Fentanyl at 25 mcg/hr. Ventilator settings ACVC 18/450/5/40%. SpO2 90% or greater. SR per monitor. BP stable with 8 mcg/min levophed and vasopressin at standard dosing. Pt's RACHEL output is dark and questionably cloudy. Discussed with Dr Mcbride today, plan to continue to monitor. BRUCE dressing unchanged. 1 L of dark output from cade catheter. 100 mL of output from OG tube. Pt's chart and belongings transferred to new room.
--- NOTE | 2020-09-17 19:29 | NUR ---
ASSUMED PT CARE FROM SUSAN MAK AT 1800 PT INTUBATED/SEDATED. VENT SETTINGS AC/VC 18, VT 450, PEEP 10, FIO2 40%, SPO2 95%, RR 19. PROPOFOL AT 40MCG/KG/MIN AND PRECEDEX AT 0.4MCG/KG/HR. PT OPEN EYES TO NOXIOUS STIMULI, WITHDRAWALS/GUARDS FROM PAIN, MOVES ALL EXTREMITIES, AND GRIMACES. FENTANYL GTT INFUSING AT 25MCG/HR; HOWEVER, PT STILL APPEARS IN DISCOMFORT AND PER ORDERS FENTANYL MAY BE TITRATED BY 25MCG EVERY 15 MIN WITH A 4 HOUR LOCK OUT OF 300MCG; THEREFORE INCREASED FENTANYL GTT TO 50MCG/HR. LEVOPHED AT 8MCG/MIN AND VASOPRESSIN AT 0.04 UNITS/MIN WITH SBP'S 80'S AND MAP'S 50'S; THEFEFORE, INCREASED LEVOPHED TO 10MCG/MIN WITH GOOD EFFECT. LR INFUSING AT 125MLS/HR. PT IS NSR WITH HR 60'S PT RECEIVED BED BATH D/T DIAPHORESIS AND LINEN BEING MOIST. RACHEL DRAIN DRESSING WAS SATURATED WITH YELLOW SEROUS FLUID; THEREFORE, SITE WAS CLEANSED WITH CHLORA PREP AND NEW GAUZE AND TEGADERM APPLIED OVER INSERTION SITE. RACHEL DRAIN CONTINUES TO PRODUCE COPIOUS AMOUNTS OF YELLOW/GREEN BILE APPEARING FLUID. MID ABDOMINAL INCISION HAS BRUCE DRESSING THAT IS INTACT WITH UNCHANGED, DRIED SANGUINEOUS DRAINAGE. TEMP HILARIO IS PATENT AND DRAINING TO GRAVITY; DARK ALEXA WITH TEMP NOTED TO BE 100.9. OG CONTINUES TO PUT OUT DARK GREEN BILE. PT CONTINUES WITH NO BM SINCE 09/14/20. SEE SHIFT SUMMARY FOR FURTHER DETAILS.
[2020-09-17 21:36] LABS: Source, Urine Catheter
--- NOTE | 2020-09-17 21:39 | NUR ---
URINARY CATHETER PT CONTINUES TO HAVE ISSUES WITH HILARIO NOT DRAINING ADEQUATELY. PT HAS REQUIRED TWO HILARIO CATHETER CHANGES IN TWO DAYS. NOTED LOW URINARY OUTPUT AND ATTEMPTED TO IRRIGATE CATHETER WITH 30CC OF STERILE WATER; HOWEVER, UNABLE TO IRRIGATE CATHETER. UPON REMOVAL OF CATHETER PT VOIDED A LARGE OF UNMEAUSURED URINE ALL OVER THE BED. REPLACED THE CATHETER WITH ANOTHER 14F COUDE WITH SLIGHT RESISTANCE, BUT NO ISSUES. DRAINING ADEQUATE AMOUNTS OF DARK ALEXA COLORED URINE. WILL REQUEST ORDERS FOR BLADDER IRRIGATION TO PREVENT FUTURE ISSUES.
[2020-09-17 21:40] LABS: Appearance, Urine Hazy (Clear); Bilirubin, Urine Neg (Neg); Blood, Urine 5+ (Neg); Color, Urine Amber (P-Yellow); Glucose Qualitative, Urine Neg (Neg); Ketones, Urine Neg (Neg); Leukocyte Esterase, Urine 1+ (Neg); Nitrite, Urine Neg (Neg); Protein, Urine 2+ (Neg); Urobilinogen, Urine 1+ (Normal)
--- NOTE | 2020-09-17 21:41 | NUR ---
DR. RODRIGUEZ PLACED CALL TO DR. RODRIGUEZ REGARDING DISPOSABLE WOUND VAC TO BRUCE DRESSING TURNING OFF. NEW ORDERS TO REMOVE AND LEAVE MANDO. PLACE ABD BAD OVER INCISION IF THERE IS ANY DRAINAGE.
[2020-09-17 21:47] LABS: Bacteria Many /hpf; Red Blood Cells, Urine TNTC /hpf (0-2); Squamous Epithelial Cells Few /hpf (Few); Uric Acid Crystals Few /hpf
[2020-09-18 04:48] LABS: Hematocrit 24.2 % (37.0-53.0); Hemoglobin 7.4 g/dL (13.5-17.5); Mean Corpuscular HGB 33.5 pg (26.0-34.0); Mean Corpuscular HGB Conc 30.6 g/dL (31.5-36.5); Mean Corpuscular Volume 110 fL (80-100); RDW Coefficient Variation 27.6 % (11.7-14.2); RDW Standard Deviation 100.3 fL (35.1-46.3); Red Blood Cell Count 2.21 M/mm3 (4.30-5.90)
[2020-09-18 05:03] LABS: Albumin, Blood 3.2 g/dL (3.4-5.0); Anion Gap 3 mmol/L (6-16); Blood Urea Nitrogen 24 mg/dL (8-24); Bun/Creatinine Ratio 39.9 (12.0-20.0); CO2, Blood 28 mmol/L (21-32); Calcium, Blood 7.1 mg/dL (8.5-10.1); Chloride, Blood 108 mmol/L (98-108); Glomerular Filtration Rate >60 (60-); Glucose, Blood 116 mg/dL (70-99); Phosphorus, Blood 2.1 mg/dL (2.5-4.9); Potassium, Blood 3.4 mmol/L (3.5-5.5); Sodium, Blood 139 mmol/L (136-145)
--- NOTE | 2020-09-18 06:01 | NUR ---
END OF SHIFT SUMMARY NO SIGNIFICANT CHANGES SINCE LAST ENTRY. VENT SETTINGS AC/VC 18, VT 450, PEEP 10, FIO2 45%, SPO2 92%, RR 18. PT PRODUCING COPIOUS AMOUNTS OF THICK YELLOW/AMAYA SPUTUM WITH INCREASED FIO2 REQUIREMENTS THIS SHIFT. PROPOFOL AT 60MCG/KG/MIN, PRECEDEX AT 0.3 MCG/KG/HR, FENTANYL GTT AT 75MCG/HR. PT ABLE TO GRIMACE AND WITHDRAWAL FROM NOXIOUS/PAINFUL STIMULI. DOES NOT FOLLOW COMMANDS. ATTEMPTS TO OPEN EYES TO VERBAL STIMULI. PT MOVES ALL EXTREMITIES; HOWEVER, VERY EDEMATOUS AND WEAK. LR INFUSING AT 125MLS/HR. NS TKO. LEVOPHED AT 14MCG/MIN. VASOPRESSIN 0.04 UNITS/MIN. ATTEMPTED TO TITRATE OFF VASOPRESSIN; HOWEVER, PT DID NOT TOLERATE WITH SBP IN THE 70'S. NG IS HOOKED TO LIS WITH GREEN/BROWN BILE NOTED. DRESSING REMOVED TO MID ABDOMINAL INCISION; VIVIAN INTACT; HOWEVER, HIGH RISK OF DEHISCENCE SECONDARY TO DISTENDED ABDOMEN AND FREQUENT COUGHING ON VENT; THEREFORE, REINFORCED IN BETWEEN VIVIAN WITH STERI STRIPS AND PLACED A BORDER GAUZE ADHESIVE TO INCISION D/T SMALL AMOUNTS OF SEROSANGUINEOUS DRAINAGE. RACHEL DRAIN REMAINS TO RLQ WITH COPIOUS AMOUNTS OF OUTPUT THIS SHIFT; GREEN/YELLOW IN COLOR. HILARIO REMAINS PATENT AND Q6 IRRIGATION FLUSHES PER ORDERS WITH DARK ALEXA COLORED URINE. WILL CONTINUE TO MONITOR UNTIL REPORT IS HANDED OFF TO ONCOMING RN.
[2020-09-18 06:03] LABS: BASOPHILS ABSOLUTE AUTO 0.34 K/mm3 (0.00-0.23); BASOPHILS PERCENT AUTO 0 % (0-2); EOSINOPHILS ABSOLUTE AUTO 0.02 K/mm3 (0.00-0.68); EOSINOPHILS PERCENT AUTO 0 % (0-6); IMMATURE GRAN ABSOLUTE AUTO 27.73 K/mm3 (0.00-0.10); IMMATURE GRAN PERCENT AUTO 30 % (0-1); LYMPHOCYTES ABSOLUTE AUTO 2.87 K/mm3 (0.84-5.20); LYMPHOCYTES PERCENT AUTO 3 % (21-46); MONOCYTES ABSOLUTE AUTO 39.44 K/mm3 (0.16-1.47); MONOCYTES PERCENT AUTO 42 % (4-13); NEUTROPHILS ABSOLUTE AUTO 23.37 K/mm3 (1.96-9.15); NEUTROPHILS PERCENT AUTO 25 % (41-73); NRBC ABSOLUTE 6.61 K/mm3 (0.00-0.02)
[2020-09-18 06:05] LABS: Platelet Count 37 K/mm3 (150-400); White Blood Cell Count 93.77 K/mm3 (4.00-11.30)
[2020-09-18 06:08] LABS: BAND PERCENT MAN 4 % (0-8); BASOPHILS ABSOLUTE MAN 0.93 K/mm3 (0.00-0.23); BASOPHILS PERCENT MAN 1 % (0-2); BLASTS PERCENT MAN 8 % (0-0); EOSINOPHILS PERCENT MAN 0 % (0-6); LYMPHOCYTES ABSOLUTE MAN 3.75 K/mm3 (0.84-5.20); LYMPHOCYTES PERCENT MAN 4 % (21-46); METAMYELOCYTE ABSOLUTE MAN 4.68 K/mm3 (0.00-0.00); METAMYELOCYTE PERCENT MAN 5 % (0-0); MONOCYTES ABSOLUTE MAN 27.19 K/mm3 (0.16-1.47); MONOCYTES PERCENT MAN 29 % (4-13); MYELOCYTE ABSOLUTE MAN 6.56 K/mm3 (0.00-0.00); MYELOCYTE PERCENT MAN 7 % (0-0); NEUTROPHILS ABSOLUTE MAN 26.25 K/mm3 (1.96-9.15); PROMYELOCYTE ABSOLUTE MAN 16.87 K/mm3 (0.00-0.00); PROMYELOCYTE PERCENT MAN 18 % (0-0); SEG NEUTROPHILS PERCENT MAN 24 % (41-73); TOTAL CELLS COUNTED 100
--- NOTE | 2020-09-18 08:35 | NUR ---
CARE ASSUMED 0700 Pt intubated and sedated. Vent: A/C VC 18/450/10/45%, SPO2 > 95%. Propofol 60 mcg/kg/min, Precedex 0.2 mcg/kg/hr, responds to noxious stumli, grimac during oral care/moves all extrems. Fentanyl GTT infusing a 75 mcg/hr. Levophed at 14 mcg/min and vasopressin 0.04 units/min, MAP > 65, SBP 100/50. LR @ 125 ML/HR. Sinus frances, HR 50's. RACHEL Drain with yellow/brown appearing fluid, RLQ. Mid abd incision has steri stripes wih gauze dressing, C/D/I. NG to LIS, green/brown drainage. Hutchins in place, flushed 30 ml of sterile water, 100 ml of baron cloudy ouput. Temp of 99.1. Dr. Mriamontes in to see patient.
--- NOTE | 2020-09-18 11:03 | NUR ---
Provider Visit Dr. Sequeira in to see patient. Vent changes: AC VC /8/40%, RT aware of changes. Provider would like to speak to family in regards to patients poor prognosis. Spoke to , Rebeca, via phone. to come in about one or two hours. Provider would like pallative care at bedside as well.
--- NOTE | 2020-09-18 11:36 | NUR ---
Possible Comfort Care Dr. Sequeira would like Dr. Mcbride to come in to speak to family for comfort care. Dr. Mcbride called and provider states he spoke to yesterday and explained poor prognosis. states she spoke to Dr. Mcbride yesterday and he explained the poor prognosis. Dr. Sequeira spoke to patients along with Estefany from Pallative care. would like family at bedside, charge nurse made aware.
--- NOTE | 2020-09-18 12:58 | NUR ---
Comfort Care Patients has decided to go comfort care at this moment. Family at bedside. Dr. Sequeira and Estefany from [facility] made aware.
--- NOTE | 2020-09-18 13:07 | NUR ---
Pt's and children are present in the room. Pt's has spoken with Dr. Mcbride as well as Dr. Sequeira regarding pt's prognosis. Family has decided on comfort care, and pt to be extubated. Comfort care orders in place.
--- NOTE | 2020-09-18 14:30 | NUR ---
Final Discharge 1350 Patient extubated at 1328, family at bedside. All drips stopped, Treated per emar. SUSAN Le completed discharge and annouced time of . [facility] to come fern picker patient per family request. SUSAN Le spoke with family and [facility] on the phone about final discharge detials.
--- NOTE | 2020-09-18 15:44 | NUR ---
Luisa in to collect patient at 1540. All belongings send home with patients family.
== END 2020-09-18 13:50 | DRG 853 ==
LOC: ER 10:56 → ERHOLD 13:56 → ICUE 13:56 → ICUW 09-17 18:00
PROVIDERS: Emergency Medicine; Internal Medicine; Internal Medicine Critical Care Medicine; Internal Medicine Pulmonary Disease; Nurse Practitioner Acute Care; Physician Assistant; Surgery; ADMIT Internal Medicine
PROC: 0DBU0ZX Excision of Omentum, Open Approach, Diagnostic (ICD-10-PCS; 2020-09-15)
PROC: 30233N1 Transfusion of Nonautologous Red Blood Cells into Peripheral Vein, Percutaneous Approach (ICD-10-PCS; 2020-09-15)
PROC: 3E043XZ Introduction of Vasopressor into Central Vein, Percutaneous Approach (ICD-10-PCS; 2020-09-15)
PROC: 02HV33Z Insertion of Infusion Device into Superior Vena Cava, Percutaneous Approach (ICD-10-PCS; 2020-09-15)
PROC: 0DU907Z Supplement Duodenum with Autologous Tissue Substitute, Open Approach (ICD-10-PCS; principal; 2020-09-15 14:45)
DX: A41.9 Sepsis, unspecified organism (principal); K25.5 Chronic or unspecified gastric ulcer with perforation; R65.21 Severe sepsis with septic shock; J96.00 Acute respiratory failure, unspecified whether with hypoxia or hypercapnia; J18.9 Pneumonia, unspecified organism; C92.10 Chronic myeloid leukemia, BCR/ABL-positive, not having achieved remission; E46 Unspecified protein-calorie malnutrition; I10 Essential (primary) hypertension; Z20.822 Contact with and (suspected) exposure to COVID-19; Z66 Do not resuscitate; F17.210 Nicotine dependence, cigarettes, uncomplicated; Z51.5 Encounter for palliative care; D69.59 Other secondary thrombocytopenia; R57.8 Other shock; D63.0 Anemia in neoplastic disease; E78.5 Hyperlipidemia, unspecified; Z88.5 Allergy status to narcotic agent; Z88.4 Allergy status to anesthetic agent; Z90.89 Acquired absence of other organs; Z98.52 Vasectomy status; Z79.82 Long term (current) use of aspirin; Z79.899 Other long term (current) drug therapy; Z79.02 Long term (current) use of antithrombotics/antiplatelets; Z92.21 Personal history of antineoplastic chemotherapy; Z68.25 Body mass index [BMI] 25.0-25.9, adult; Z95.820 Peripheral vascular angioplasty status with implants and grafts; Z98.890 Other specified postprocedural states; Z86.010 Personal history of colon polyps; Z95.828 Presence of other vascular implants and grafts
CPT/HCPCS: 31500; 36415; 36430; 36600; 51702; 51703; 71045; 74177; 80053; 80069; 81001; 82803; 82947; 83605; 83690; 83735; 84484; 85014; 85018; 85025; 86850; 86900; 86901; 86920; 86923; 87040; 87086; 88305; 93005; 93010; 94002; 94003; 94640; 96365-59; 96367-59; 96375-59; 96376-59; 99285-25; A9270; C1751; J0295; J0456; J1170; J1642; J2060; J2250; J2270; J2370; J2405; J2543; J2704; J3010; J7030; J7040; J7050; J7060; J7070; J7120; P9016; P9035; P9046; Q9967; U0004